=== PATIENT | female | born 1965 | race Two or more races ===

== ENCOUNTER → 2025-05-17 | Outpatient (CLI) | payer MEDICAID, SELFPAY ==
--- NOTE | 2025-05-17 08:00 | XR_ITS ---
Examination: CT pelvis without intravenous contrast. 2-D sagittal and coronal reconstructions. Date and time of exam:May 17, 2025 0817 hours INDICATIONS: Urine infections one month CTDI: vol (mGy) :11 DLP: (mGycm) : 347 Technique: Multiple 3 mm axial sections of the pelvis have been obtained with the 64 slice high resolution scanner. 2-D sagittal and coronal reconstructions. Low dose protocols were performed. One or more of the following dose reduction techniques were used; automated exposure control, adjustment of the mA and/or KV according to patient size, use of iterative reconstruction technique. Findings: Normal appendix Colonic diverticulosis, no diverticulitis Absent uterus No adnexal mass Contracted urinary bladder with minimal urinary bladder wall thickening No mass in the urinary bladder Small fat-containing left femoral hernia No pelvic abscess Prominent osteopenia IMPRESSION: Minimal urinary bladder wall thickening, consider cystitis
== END | disposition home or self-care (01) ==
LOC: CCTX 07:54
PROVIDERS: Referring Provider Physician Assistant; Visit Provider Physician Assistant
DX: N32.89 Other specified disorders of bladder (principal); Z71.2 Person consulting for explanation of examination or test findings
CPT/HCPCS: 72192

== ENCOUNTER 2025-08-05 10:35 | Emergency (ER) | payer MEDICAID, SELFPAY ==
[2025-08-05 10:36] VITALS: BMI 31.8
[2025-08-05 10:59] VITALS: BP 125/82; PULSE 71; RESP 18; TEMP 37.3; O2SAT 99
--- NOTE | 2025-08-05 11:07 | PD.EDHA ---
ED Headache RME/HPI General Chief Complaint: Headache Stated Complaint: CAN'T SLEEP X3 DAYS Time Seen by Provider: 08/05/25 10:36 Source: patient Arrival date/time: 08/05/25 10:35 60-year-old female with no known medical history presents to the emergency room with a chief complaint of insomnia and headache x 3 days Mode of arrival: ambulatory Limitations: no limitations Related Data Home Medications ?Medication ?Instructions ?Recorded ?Confirmed buspirone 15 mg tablet 7.5 mg PO BID 09/12/23 09/12/23 losartan 25 mg tablet 25 mg PO HS 09/12/23 09/12/23 sertraline 100 mg tablet 100 mg PO DAILY 09/12/23 09/12/23 trazodone 100 mg tablet 100 mg PO HS 09/12/23 09/12/23 Allergies Allergy/AdvReac Type Severity Reaction Status Date / Time No Known Allergies Allergy Verified 08/05/25 10:38 ED Exam General Limitations: Present no limitations Course Quality Measures none Orders Category Date Time Status CBC Stat Lab 08/05/25 11:24 Completed CMP [Comprehensive Metabolic Panel] Stat Lab 08/05/25 11:24 Completed Free T4 (Free Thyroxine) Stat Lab 08/05/25 11:24 Completed TSH [Thyroid Stimulating Hormone] Stat Lab 08/05/25 11:24 Completed UA, C/S IF [Urinalysis, C/S if Indicated] Stat Lab 08/05/25 12:10 Completed Urine Culture Stat Lab 08/05/25 12:10 Received DiphenhydrAMINE [Benadryl] Med 08/05/25 11:04 Discontinued 50 mg PO X1 ONE Ketorolac Inj [Toradol Inj] Med 08/05/25 11:04 Discontinued 30 mg IM X1 ONE Vital Signs Vital signs: Vital Signs Temperature 99.2 F 08/05/25 10:59 Pulse Rate 71 08/05/25 10:59 Respiratory Rate 18 08/05/25 10:59 Blood Pressure 125/82 08/05/25 10:59 Pulse Oximetry (%) 99 08/05/25 10:59 Oxygen Delivery Method Room Air 08/05/25 10:59 Headache MDM Narrative MDM Narrative:: 60-year-old female with no known medical history presents to the emergency room with a chief complaint of insomnia and headache x 3 days Patient is hemodynamically stable and in no apparent distress Physical examination shows a normal neurological exam. Patient is a GCS of 15 she is alert and oriented x 3 pupils are PERRLA EOMs are intact the patient has no focal deficits CBC CMP were within normal limits thyroid function is within normal limits Patient was discharged and educated to follow-up with primary care provider in the next 24 to 48 hours and return to the emergency room for any evidence of worsening signs or symptoms Patient data External records reviewed:: [facility] previous records Clinical information provided by:: patient Social determinants that could affect healthcare access:: none Patient has the following chronic illnesses:: No chronic illness How is presenting disease/condition affected by chronic disease/condition?: no chronic disease Evaluation data The following diagnostics were reviewed and interpreted by me:: lab results and radiology exam(s) Lab and/or radiology exams considered but not ordered:: Labs and radiology exams considered and ordered Interpretation Summary: N/A Medications / Prescriptions Medications or Prescriptions considered but not ordered:: Medication given Medication administrations:: Medication Administration History Discontinued Medications Diphenhydramine HCl (Diphenhydramine Elix 25 Mg/10 Ml Udc) 50 mg PO X1 ONE Stop: 08/05/25 11:05 Last Admin: 08/05/25 11:20 Dose: Not Given Documented By: KVNG Non-Admin Reason: Patient Refused Ketorolac Tromethamine (Ketorolac Inj 60 Mg/2 Ml Vial) 30 mg IM X1 ONE Stop: 08/05/25 11:05 Last Admin: 08/05/25 11:20 Dose: Not Given Documented By: KVNG Non-Admin Reason: Patient Refused Medication given Consultations Consultation(s) initiated? (list below): No Diagnosis Differential diagnosis headache: migraine, tension headache, headache and other (Insomnia) Most likely diagnosis given after review of the tests above:: Insomnia Admission Indicated Admission indicated?: not indicated Admission Request Was there a request for admission?: No Disposition Plan Disposition Plan: Discharge Discharge Attestation Discharge Attestation: The patient and all family members were given an opportunity to ask questions and understood the discharge instructions. Discharge instructions specifically effects, indications for sooner follow up or return to the emergency department, and the expected course of current diagnosis. Patient condition: Stable Discharge Plan Plan Patient Disposition: HOME (Self Care) Discharge Disposition comment: Stable Prescriptions/Referrals Prescriptions/Med Rec: No Action sertraline 100 mg tablet 100 mg PO DAILY trazodone 100 mg tablet 100 mg PO HS losartan 25 mg tablet 25 mg PO HS buspirone 15 mg tablet 7.5 mg PO BID Referrals: Jessica Hoffman, [facility] [Primary Care Provider] - In 1 week Problem List Clinical Impression: Insomnia, Headache Patient/Caregiver Discharge Instructions Education Materials: What Is Insomnia?, ED Insomnia Additional Instructions: Please follow-up with your primary care provider in the next 24 to 48 hours Your blood work was negative for any acute findings For any evidence of worsening signs or symptoms return to emergency room immediately Print Language: Omani Stand Alone Forms: Adelia Award Info., Patient Portal Info Letter PA/HOT METAL MIXER OPERATOR HELPER Supervising Physician PA/HOT METAL MIXER OPERATOR HELPER Supervising Physician: Dr. Ochoa
[2025-08-05 11:39] LABS: Basophils # (Auto) 0.0 Thou/mm3 (0.0-0.2); Basophils % (Auto) 0 % (0-2.5); Eosinophils # (Auto) 0.2 Thou/mm3 (0.0-0.5); Eosinophils % (Auto) 2 % (0-10); Hematocrit 40.2 % (36.0-46.0); Hemoglobin 13.0 g/dL (12.0-16.0); Immature Granulocytes Auto 0.03 Thou/mm3 (0.00-0.00); Lymphocytes # (Auto) 2.8 Thou/mm3 (1.0-4.8); Lymphocytes % (Auto) 38 % (10-50); Mean Corpuscular HGB Conc 32.3 g/dl (31.0-37.0); Mean Corpuscular Hemoglobin 27.6 pg (25.0-35.0); Mean Corpuscular Volume 85 fL (80-100); Monocytes # (Auto) 0.5 Thou/mm3 (0.0-0.8); Monocytes % (Auto) 6 % (0-12); Neutrophils # (Auto) 4.0 Thou/mm3 (1.8-7.7); Neutrophils % (Auto) 53 % (37-80); Nucleated Red Blood Cell # 0.00 Thou/mm3 (0.00-0.00); Nucleated Red Blood Cell % 0 /100 WBC (0); Platelet Count 308 Thou/mm3 (140-440); RDW Standard Deviation 41.8 fL (36.4-46.3); Red Blood Count 4.71 Miln/mm3 (4.00-5.20); White Blood Count 7.5 Thou/mm3 (3.6-11.0)
[2025-08-05 11:59] LABS: Alanine Aminotransferase 21 U/L (10-49); Albumin, Serum 4.9 gm/dL (3.5-5.0); Albumin/Globulin Ratio 2.1 (1.2-2.2); Alkaline Phosphatase 101 U/L (46-116); Anion Gap 10 (7-16); Aspartate Amino Transferase 23 U/L (0-34); BUN/Creatinine Ratio 19 Ratio (12-20); Bilirubin,Total 0.4 mg/dL (0.3-1.2); Blood Urea Nitrogen 13 mg/dL (9-23); Calcium 9.8 mg/dL (8.3-10.6); Calcium (Corrected) 9.8 mg/dL (8.5-10.1); Carbon Dioxide 29.5 mMol/L (20.0-31.0); Chloride 103 mMol/L (98-107); Creatinine (Component) 0.7 mg/dL (0.6-1.3); Estimated Creatinine Clearance 87.6 mL/min (>60); Free T4 (Free Thyroxine) 1.08 ng/dL (0.89-1.76); Globulin 2.3 gm/dL (2.3-3.5); Glucose 81 mg/dL (74-106); Osmolality,Calculated 282 (275-295); Potassium 4.3 mMol/L (3.4-5.1); Sodium 142 mMol/L (136-145); Thyroid Stimulating Hormone 3.57 uIU/mL (0.55-4.78); Total Protein 7.2 gm/dL (5.7-8.2); eGFR > 60 See Note
[2025-08-05 12:47] LABS: Collection Type, Urine Clean Catch
[2025-08-05 12:54] LABS: Bilirubin,Urine Negative (Negative); Blood,Urine 2+ (Negative); Clarity,Urine Clear (Clear/Hazy); Color,Urine Yellow (Lt Yel-Yel); Glucose, Urine Negative (Negative); Hyaline Casts,Urine < 1 /hpf (0-1); Ketones,Urine Negative (Negative); Leukocyte Esterase,Urine Positive (Negative); Nitrite,Urine Negative (Negative); PH,Urine 6.0 (5.0-7.0); Protein,Urine Trace (Neg - Trace); RBC,Urine 24 /hpf (0-3); Specific Gravity,Urine 1.028 (1.001-1.035); Squamous Epithelial Cell,Urine < 1 /hpf (0-5); Urobilinogen,Urine Negative mg/dL (0.0-1.0); WBC,Urine 28 /hpf (0-5)
[2025-08-05 13:02] LABS: Culture Indicated,Urine Yes
== END 2025-08-05 13:20 | disposition home or self-care (01) ==
PROVIDERS: Nurse Practitioner Family; Emergency Provider Family Medicine; PCP Nurse Practitioner Family
DX: G47.00 Insomnia, unspecified (principal); R51.9 Headache, unspecified
CPT/HCPCS: 36415; 80053; 81001; 84439; 84443; 85025; 87077; 87086; 87186; 99281

== ENCOUNTER 2025-08-07 12:09 | Emergency (ER) | payer MEDICAID, SELFPAY ==
[2025-08-07 12:49] VITALS: BP 147/87; PULSE 81; RESP 16; TEMP 36.8; O2SAT 97; BMI 31.8
--- NOTE | 2025-08-07 13:19 | EDNOTE_ITS ---
<Statement entered by Kathleen Celestin MD - 08/14/25 14:33> As co-signing physician, I was present and available for consult prn. I concur with the plan and care as documented by the midlevel provider. ED General RME/HPI General Chief complaint: General Adult/Misc Complain Stated complaint: UNABLE TO SLEEP D/T RESTLESS LEGS/LEG CRAMPS Time Seen by Provider: 08/07/25 12:14 Arrival date/time: 08/07/25 12:09 This is a 60-year-old female that comes into the emergency room with complaints of anxiety and leg pain. Patient states that she has been diagnosed with restless leg syndrome. Patient reports that she used to take gabapentin for the restless leg. Patient reports taking 600 mg and this would help her sleep and along with the leg cramping that she gets at night when she goes to bed. Patient states that she feels like it was not helping so she stopped taking the medication approximately 1 week ago. Patient states she is not able to sleep and the cramps to her legs have worsened. Patient also has anxiety. Patient was on trazodone and BuSpar is no longer taking this medication. Patient states she is currently waiting for a neurology referral. Related Data Home Medications ?Medication ?Instructions ?Recorded ?Confirmed buspirone 15 mg tablet 7.5 mg PO BID 09/12/2309/12 losartan 25 mg tablet 25 mg PO HS 09/12/23 3 sertraline 100 mg tablet 100 mg PO DAILY 09/12/2311/04 trazodone 100 mg tablet 100 mg PO HS 09/12/23 Allergies Allergy/AdvReac Type Severity Reaction Status Date / Time No Known Allergies Allergy Verified 08/07/25 12:13 Review of Systems Review of Systems Systems Reviewed: All systems reviewed, normal except as documented Past Medical History Past Medical History Comments PMH COMMENT: PMH: depression, anxiety, and panic attacks FH: Non-contributory Surgical Hx: Hysterectomy Social Hx: Denies tobacco, alcohol, or drug use Travel Hx: No recent travel ED Exam Narrative Physical exam: VITAL SIGNS: Reviewed. GENERAL APPEARANCE: Alert and interactive, follows commands, no acute distress HEAD AND FACE: Non-traumatic. ENT: PERRL, conjuctiva pink and clear, eyelid no trauma, Mucous membrane moist. NECK: Supple, nontender, no nuchal rigidity. CHEST: No tenderness, no crepitus, no paradoxical movement, no retractions. LUNGS: breathing even and unlabored HEART: Regular rate, cap refill less than 2 seconds ABDOMEN: Soft, nondistended, no guarding, nontender NEUROLOGICAL: Gross motor function intact sensory function intact, Appropriate for age. MUSCULOSKELETAL: low back nontender, full range of motion. EXTREMITIES: No redness no swelling no skin breakdown on bilateral foot and leg. Distal neurovascular status intact bilateral foot SKIN: Color pink, dry Course Quality Measures none Orders Category Date Time Status Acetaminophen Tab [Tylenol ES Tab] Med 08/07/25 13:15 Discontinued 1,000 mg PO X1 ONE Ibuprofen Tab [Motrin Tab] Med 08/07/25 13:15 Discontinued 800 mg PO X1 ONE LORazepam [Ativan] Med 08/07/25 13:15 Discontinued 0.5 mg PO X1 ONE Vital Signs Vital signs: Vital Signs Temperature 98.2 F 08/07/25 12:49 Pulse Rate 81 08/07/25 12:49 Respiratory Rate 16 08/07/25 12:49 Blood Pressure 147/87 H 08/07/25 12:49 Pulse Oximetry (%) 97 08/07/25 12:49 Oxygen Delivery Method Room Air 08/07/25 12:49 Discharge Plan Plan Patient Disposition: HOME (Self Care) Patient condition on transfer: Stable Prescriptions/Referrals Prescriptions/Med Rec: No Action sertraline 100 mg tablet 100 mg PO DAILY trazodone 100 mg tablet 100 mg PO HS losartan 25 mg tablet 25 mg PO HS buspirone 15 mg tablet 7.5 mg PO BID Problem List Clinical Impression: Anxiety, Leg pain Patient/Caregiver Discharge Instructions Education Materials: ED Anxiety Reaction, ED Myalgias Additional Instructions: Follow up with primary provider in 1-2 days. Come back to ED if symptoms change or worsen Print Language: Bangladeshi Stand Alone Forms: Adelia Award Info., Patient Portal Info Letter PA/SAILING MASTER Supervising Physician PA/SAILING MASTER Supervising Physician: connie ACOSTA Narrative MDM hospital course (for use when minimal MDM required): I spoke to patient at length. Patient might be withdrawing off her gabapentin that she was taking. Patient does have some at home. Patient will slowly start taking medication at home. I told her to follow-up with her primary provider as she already has an appointment tomorrow. I told them to discuss her cramping in her legs. I also told her that she needs to talk to them about possibly getting back on her antidepressants. Today we will give patient a dose of Ativan. Patient told to get a ride home. Patient also given a dose of Tylenol and ibuprofen. Patient told to make sure she follows up with her primary provider in 1 to 2 days. Come back to the emergency room if symptoms change or worsen. Patient verbalized understanding. Patient comfortable plan of care. Follow up with primary provider in 1-2 days. Come back to ED if symptoms change or worsen. I told patient to talk to her primary doctor about vitamin deficiencies and consider possible magnesium supplement. Dragon dictation: Although this document has been carefully reviewed, there may still be some phonetic and other typographical errors. These errors are purely grammatical due to imperfections in the software program and should not be construed in any way to compromise the substance of the patient's medical care during this visit. Clinical Information Provided by: patient Medical Records reviewed [facility] Labs/Rad/Tests considered, not ordered None Chronic Illness/Social Conditions which may negatively complicate care or outcome(s)-explain: None or not applicable Imaging Imaging interpretation: none Medication Administration(s) Medication Administration History Discontinued Medications Acetaminophen (Acetaminophen 500 Mg Tablet) 1,000 mg PO X1 ONE Stop: 08/07/25 13:16 Last Admin: 08/07/25 13:24 Dose: 1,000 mg Documented By: OA Ibuprofen (Ibuprofen Tab 400 Mg Tablet) 800 mg PO X1 ONE Stop: 08/07/25 13:16 Last Admin: 08/07/25 13:24 Dose: 800 mg Documented By: ANGEL Lorazepam (Lorazepam 0.5 Mg Tablet) 0.5 mg PO X1 ONE Stop: 08/07/25 13:16 Last Admin: 08/07/25 13:24 Dose: 0.5 mg Documented By: OA
[2025-08-07] MEDS: IBUPROFEN TAB 400 MG TABLET 800 MG PO (13:24)
[2025-08-07] MEDS: ACETAMINOPHEN 500 MG TABLET 1000 MG PO (13:24)
== END 2025-08-07 13:29 | disposition home or self-care (01) ==
PROVIDERS: Emergency Provider Emergency Medicine
DX: F41.1 Generalized anxiety disorder (principal); G25.81 Restless legs syndrome
CPT/HCPCS: 99281; A9270